=== PATIENT | male | born 1990 | race African-American/Black ===

== ENCOUNTER → 2019-07-26 | Outpatient (CLI) | payer OTHER ==
--- NOTE | 2019-07-26 14:38 | REP ---
TRIPLE PHASE BONE SCAN LOWER LEGS: Following the intravenous administration of 21.8 mCi of technetium-99m MDP, patient's lower legs are imaged in flow phase, immediate blood phase, and 3.5 hour delayed phase in multiple projections. There is no abnormal blood flow or blood pooling. There is mild bilateral linear increased uptake along the tibial shafts predominantly in the mid aspect of the tibias compatible with stress periostitis or valenzuela splints. No stress fracture is seen. IMPRESSION: Scintigraphic findings most consistent with mild stress periostitis or valenzuela splints bilaterally with no evidence of stress fracture. Electronically Signed by Colin Jarquin MD 07/26/2019 04:23 P
== END ==
LOC: M RAD 07:58
PROVIDERS: ATTEND Physician Assistant Medical
DX: M79.661 Pain in right lower leg (principal)
CPT/HCPCS: 78315; A9503

== ENCOUNTER → 2020-05-26 | Outpatient (CLI) | payer OTHER ==
--- NOTE | 2020-05-27 08:25 | REP ---
KNEE: REASON: Pain after twisting injury. There are no priors for comparison. FINDINGS: The compartments are symmetric and relatively well maintained. There is no acute fracture or destructive osseous lesion. There is a small exostosis arising from the medial cortex of the proximal fibula, likely an osteochondroma. Electronically Signed by Donavan Linton DO 05/27/2020 09:12 A
== END ==
LOC: M LRY 16:50
PROVIDERS: ATTEND Physician Assistant
DX: S89.91XA Unspecified injury of right lower leg, initial encounter (principal); X58.XXXA Exposure to other specified factors, initial encounter; Y92.89 Other specified places as the place of occurrence of the external cause

== ENCOUNTER → 2020-12-04 | Outpatient (CLI) | payer OTHER | LOC: M LABSMTC 10:06 | PROVIDERS: ATTEND Pediatrics | DX: Z20.822 Contact with and (suspected) exposure to COVID-19 (principal) ==